=== PATIENT | male | born 1955 | race Caucasian/White ===

== ENCOUNTER 2016-04-27 07:34 | Inpatient (IN) | payer MEDICARE, MEDICAID ==
[~2016-04-27] VITALS: Ht 180.3 cm; Wt 267.2 kg
--- NOTE | ~2016-04-27 | CO ---
ADMIT: 04/27/2016 RM/LOC: 313 [facility] MR#: [id number] 2620 [facility] [address] [place] [id number] BALJIT BUTLER [address] [place] [address] Consultation SEX: M AGE: 61 : 1955 ATTENDING PHYSICIAN: Jef Collins CONSULTING PHYSICIAN: Lukas Salgado MD ADDENDUM: For details of our for consultation, please see Jose Maria Larson's note. Baljit was seen in the Emergency Department with complaints of some mild epigastric pain and vomiting blood as well as dark stool. This occurred over the weekend and progressed through the night and this morning, prompting a call to the EMS services. Upon evaluation, he was found to be hypotensive, related to his blood loss. He has prior history upper GI bleed 2 years ago, presented with similar complaints. He has never had upper endoscopy. He is severely morbidly obese with a current weight around 700-750 pounds. He has had a lap band in place for about 10 years and reports he has lost nearly 100 pounds from that. He has been taking large quantity of Excedrin recently. Based on his presentation, proton pump inhibitor therapy was initiated. I have recommended proceeding with esophagogastroduodenoscopy for evaluation as to the source. I discussed the risks of this in detail with Baljit and he does wish to proceed. He is at substantial risk because of his severe morbid obesity and he understands that. Lukas Salgado MD/ jeannette JOB #: [id number] CC: Jef Collins, Attending Physician Jef Collins, Family Physician
--- NOTE | 2016-04-28 06:22 | ER ---
ADMIT: 04/27/2016 RM/LOC: 313 [facility] MR#: [id number] [address] [facility] [address] [place], [place] [address] BALJIT BUTLER [address] [place], [place] [id number] Emergency Room Report SEX: M AGE: 61 : 1955 DATE: 04/27/2016 TIME: 0734 hours. Please refer to my T-sheet for complete H and P. HISTORY OF PRESENT ILLNESS: Briefly, the patient is a 61-year-old who has a known history of severe morbid obesity. He has been around 700 pounds. He has weighed himself recently. He had a GI bleed a couple of years ago but he woke up with vomiting black and blood in his stools. He called the paramedics. He felt very dizzy and lightheaded. They transported him in. PHYSICAL EXAMINATION: VITAL SIGNS: His blood pressure 121/96, pulse 118, respirations 18, temp 97, sat 99%. GENERAL: No acute distress. HEENT: His conjunctivae are slightly pale. LUNGS: Clear. HEART: Regular. ABDOMEN: Morbidly obese. Really nontender. RECTAL: Shows black stools, slight maroon tinge blood. SKIN: No rash. NEURO: He is alert, oriented, and nonfocal. EMERGENCY DEPARTMENT COURSE: We established an IV. We gave him Protonix 40 mg IV, typed and crossed 4 units. CBC was normal except hemoglobin of 11.3. Coags were normal. We gave him 1 L normal saline bolus. His blood pressures were actually slightly tenuous around 89-90. I talked to Dr. Collins and Dr. Salgado. He will be admitted to the ICU under the care of Dr. Collins. Dr. Salgado will consult. I reviewed his old record. ASSESSMENT: 1. Acute gastrointestinal bleed with hematemesis and hematochezia. 2. Anemia. 3. Morbid obesity. 4. Hypotension here. PLAN: Admit to the ICU and critical care time of 60 minutes. Maco Mooney MD/ jeannette JOB #: [id number] CC: Jef Collins MD, Attending Physician Jef Collins MD, Family Physician
--- NOTE | 2016-04-29 09:22 | OR ---
ADMIT: 04/27/2016 RM/LOC: 313 [facility] MR#: [id number] 2620 [facility] [address] [place], [place] [address] BALJIT BUTLER [address] [place], [place] [address] Operative/Delivery Room Report SEX: M AGE: 61 : 1955 SURGERY DATE: 04/27/2016 SURGEON: Lukas Salgado MD PREOPERATIVE DIAGNOSES: 1. Upper gastrointestinal bleed. 2. Anemia. POSTOPERATIVE DIAGNOSIS: Deep pyloric channel ulcer. PROCEDURE: Esophagogastroduodenoscopy. ANESTHESIA: General. ESTIMATED BLOOD LOSS: Zero. FINDINGS: Deep pyloric channel ulcer without evidence of acute bleeding or Dieulafoy's vessel. DESCRIPTION OF PROCEDURE: The patient was taken to the operating room and placed supine on his bariatric bed. General endotracheal anesthesia was established. The upper endoscope was then advanced through the oropharynx into the esophagus without difficulty. The scope was pushed under visualization of the stomach. Air was used to insufflate the stomach. There was old blood in the stomach. This was irrigated and suctioned clear. The pyloric channel was easily visualized. There was a deep pyloric channel ulcer. I was able to advance beyond this carefully into the duodenum and the duodenum was normal with the exception of some old blood present. The scope was withdrawn to the antrum. Inspection of the pre-pyloric ulcer revealed no active bleeding. I did irrigate and tried to manipulate tissue to see if there was any tendency for bleeding and I could not demonstrate that. The stomach was cleared of some residual liquid. The scope was withdrawn. The patient tolerated the procedure in stable condition and transferred to the recovery area. Lukas Salgado MD/ jeannette JOB #: [id number] CC: Jef Collins, Attending Physician Jef Collins, Family Physician
--- NOTE | 2016-05-01 09:57 | CO ---
ADMIT: 04/27/2016 RM/LOC: 313 [facility] MR#: [id number] 2620 [facility] [address] [place] [id number] BALJIT BUTLER [address] [place], [place] [id number] Consultation SEX: M AGE: 61 : 1955 ATTENDING PHYSICIAN: Jef Collins CONSULTING PHYSICIAN: Lukas Salgado MD REASON FOR CONSULTATION: Upper gastrointestinal bleed, acute. HISTORY OF PRESENT ILLNESS: Baljit is a very pleasant, 61-year-old male, morbid obesity, who presents to the ICU with one day onset of coffee-grounds emesis and melenic stools. He said he has had one prior episode like this before where he was seen at this hospital and attempted EGD; however, it was unsuccessful. He believes it was from current difficult airway. This happened approximately two years ago. He believes these symptoms are due to taking Excedrin migraine [id number] medications for increased pain. He denies any bright red blood per rectum or hematemesis. He further denies taking any other blood thinning medications. PAST MEDICAL HISTORY: Significant for: 1. Depression/anxiety. 2. Hypertension. 3. Morbid obesity. PAST SURGICAL HISTORY: No prior surgeries. ALLERGIES: NO KNOWN DRUG ALLERGIES. MEDICATIONS: Well documented in chart. FAMILY HISTORY: Noncontributory. SOCIAL HISTORY: The patient denies any tobacco, alcohol, or illicit drug use. REVIEW OF SYSTEMS: CONSTITUTIONAL: The patient denies any fever, chills, or night sweats. The rest of a comprehensive 10-point review of systems was performed and all other systems are negative. PHYSICAL EXAMINATION: GENERAL: The patient is in no acute distress. He is alert and oriented. HEENT: Head is normocephalic and atraumatic. EOMS are intact. Conjunctivae free of icterus, erythema, but positive for pallor. Pinnae, free of deformities. Nose is midline. Poor dentition. No tracheal deviation. NECK: Supple. SKIN: Negative for jaundice, clubbing, edema, pallor, or cyanosis. LUNGS: Normal respiratory effort. ADMIT: 04/27/2016 RM/LOC: 313 [facility] MR#: [id number] 2620 [facility] [address] [place] [id number] BALJIT BUTLER [address] [place] [address] Consultation SEX: M AGE: 61 : 1955 HEART: Regular rate and rhythm. Distal pulses intact. ABDOMEN: Morbid obesity noted. Soft, nondistended, and nontender. NEURO: Grossly intact. ASSESSMENT: Upper gastrointestinal bleed. PLAN: The plan is to have the patient undergo EGD performed by Dr. Salgado later this afternoon. Dr. Salgado has already gone through the risks, alternatives, benefits, and complications with this and all questions have been answered at this time. Thank for the consultation this patient's. YONY Ponce / Lukas Salgado MD / jeannette JOB #: [id number] CC: Jef Collins, Attending Physician Jef Collins, Family Physician
--- NOTE | 2016-05-02 08:02 | DS ---
ADMIT: 04/27/2016 RM/LOC: 313 [facility] MR#: [id number] 2620 [facility] [address] [place], [place] [address] BALJIT ROSE [address] [place] [address] Discharge Summary SEX: M AGE: 61 : 1955 ADMISSION DATE: 04/27/2016 DISCHARGE DATE: 05/01/2016 ADMITTING DIAGNOSES: 1. Acute blood loss anemia. 2. Upper GI (gastrointestinal) bleed secondary to heavy nonsteroidal antiinflammatory drug use. 3. Hypertension. 4. Extreme morbid obesity. 5. Bilateral knee osteoarthritis. 6. History of lap band surgery. 7. Chronic venous insufficiency. 8. Overactive bladder. 9. Hypertension. 10.History of NSAID (non-steroidal anti-inflammatory drug)-induced peptic ulcer disease dating back to a previous admission in 2014. DISCHARGE DIAGNOSES: 1. Acute blood loss anemia. 2. Upper GI (gastrointestinal) bleed secondary to heavy nonsteroidal antiinflammatory drug use. 3. Hypertension. 4. Extreme morbid obesity. 5. Bilateral knee osteoarthritis. 6. History of lap band surgery. 7. Chronic venous insufficiency. 8. Overactive bladder. 9. Hypertension. 10.History of NSAID (non-steroidal anti-inflammatory drug)-induced peptic ulcer disease dating back to a previous admission in 2014. CONSULTATIONS: Dr. Salgado, general surgery, consulted on 04/27/2016. PROCEDURES: Upper gastrointestinal endoscopy performed on 04/27/2016 showing a deep pyloric channel ulcer without any evidence of active bleed. HISTORY AND PHYSICAL EXAM: Mr. Rose is a very pleasant, 61-year-old white male, with a history of severe bilateral osteoarthritis of his knees. He presented to the [facility] Emergency Department on the morning of 04/27/2016 with complaints of coffee-ground emesis times 4-6 episodes and hematochezia x3-4 episodes starting at approximately 6 o'clock the evening prior to admission. He had a previous admission to [facility] in March of 2014 for an upper GI bleed at that time thought secondary to heavy ibuprofen use for his bilateral osteoarthritis. At the time of his discharge in 2014, he was advised he was not to be taking NSAIDs due to his history of ulcers. He reports that despite this advice he has been taking Excedrin in upwards of 4 times a day on top of his Lortab for his knee pain. On the initial exam, his blood pressure was 70/43, heart rate of 113, respiratory rate of 20, temp of 97, O2 saturation 100% on room air. He was ADMIT: 04/27/2016 RM/LOC: 313 [facility] MR#: [id number] [address] [address] BALJIT ROSE [address] [place] [address] Discharge Summary SEX: M AGE: 61 : 1955 awake, alert, pale appearing but no acute distress. Extremely morbidly obese. Weights on him are estimated somewhere between 600 and 700 pounds. The remainder of his exam was unremarkable. He had minimal abdominal pain with his exam however due to his obesity it is difficult to appreciate just how accurate the exam was. On his labs, albumin was 2.9, white count was 11.5 and hemoglobin was 11.3. He was subsequently admitted to the ICU, started on IV Protonix drip and typed and crossed for 4 units of packed red cells. These were held rather than transfused. He was fluid resuscitated with IV normal saline. HOSPITAL COURSE: Baljit's hospital course was overall unremarkable. His vital signs stabilized with fluid resuscitation. Dr. Salgado with General Surgery was consulted and did take Baljit down to the endoscopy suite for an upper GI endoscopy on 04/27/2016. It showed a deep pyloric channel ulcer but no active bleeding. He came back to the ICU where the IV Protonix drip was continued and he was started on oral Carafate. He was ultimately transitioned over to oral Protonix and again on the oral Carafate and had his hemoglobins monitored. By the morning of 05/01/2016, his hemoglobins had essentially stabilized at approximately 8.8-9. He had no further episodes of coffee- grounds emesis, no melena and was essentially asymptomatic from his anemia. Decision was made to discharge him to home on 05/01/2016. Discharge condition is poor due to his overall weight. Due to his weight, his number of medical comorbidities associated with that his overall health is poor. DISCHARGE DISPOSITION: He is going to be discharged to home. DISCHARGE MEDICATIONS: Discharge medications will include: 1. Carafate 1 g q.i.d. 2. Detrol LA 4 mg daily. 3. Effexor XR 150 mg daily. 4. Protonix 40 mg b.i.d. 5. Lortab 10/325 q.i.d. p.r.n. per his primary care provider, Dr. Roth. 6. Lisinopril/hydrochlorothiazide 10/12.5, one tab daily. 7. Ferrous sulfate 325 mg daily. 8. Vitamin C 500 mg daily. FOLLOWUP: He is recommended to follow up with his primary care provider, Dr. Roth in 1-2 weeks and is to have a repeat upper gastrointestinal endoscopy with Dr. Salgado in eight weeks to follow up on the ulcer. Jef Collins MD/ christinag JOB #: [id number] CC: eJf Collins MD, Attending Physician Jef Collins MD, Family Physician
--- NOTE | 2016-05-02 08:02 | HP ---
ADMIT: 04/27/2016 RM/LOC: 313 [facility] MR#: [id number] [address] [facility] [address] [place], [place] [address] BALJIT BUTLER [address] [place] [address] History and Physical SEX: M AGE: 61 : 1955 DATE OF SERVICE: 04/27/2016 CHIEF COMPLAINT: Coffee-ground emesis and hematochezia. HISTORY OF PRESENT ILLNESS: Patient is a 61-year-old white male, with extreme morbid obesity and history of lap band who presented to the [facility] Emergency Department this morning with complaints of coffee- grounds emesis x4-6 episodes and hematochezia x3-4 episodes starting about 6:00 Last evening. He does have a previous history of upper gastrointestinal bleed. His most recent admission here at [facility] in March of 2014 was also for an upper GI bleed. At that time, he was on quite a bit of ibuprofen for bilateral osteoarthritis in his knees. His bleeding at that time stopped spontaneously and he was not scoped from above. He notes feeling a bit weak and dizzy as a result of this in the overnight period. He reports that in the last several months, most recently, has been taking Excedrin in upwards of 4 times a day on top of his Lortab for his bilateral knee pain. PAST MEDICAL HISTORY: Remarkable for: 1. Hypertension. 2. Extreme morbid obesity. 3. Bilateral knee osteoarthritis. 4. History of bilateral lower extremity cellulitis. 5. Chronic venous insufficiency of his lower extremities. 6. History of lap band surgery. 7. History of NSAID-induced peptic ulcer disease instigated previously by heavy ibuprofen use. At the time of his admission in 2014, he was on Aleve for his knees. PAST SURGICAL HISTORY: Remarkable only for lap band surgery. Otherwise no other previous surgeries. ALLERGIES: HE DENIES ANY MEDICAL ALLERGIES. MEDICATIONS: Outpatient medications include: 1. Lortab one tab q.i.d. p.r.n. 2. Lisinopril and hydrochlorothiazide 12/10.5, one tab daily. 3. Effexor XR 150 mg daily. 4. Tolterodine ER 4 mg daily. 5. Excedrin 1-2 tabs q.i.d. SOCIAL HISTORY: He is on disability. He denies any alcohol or recreational drug use or tobacco use. FAMILY HISTORY: Noncontributory. REVIEW OF SYSTEMS: He denies any chest pain, cough, fever, shortness of breath. He does know having some epigastric and left upper quadrant discomfort starting approximately 2 days prior to the vomiting. The remainder of his review of systems as per HPI, all others reviewed were negative. ADMIT: 04/27/2016 RM/LOC: 313 [facility] MR#: [id number] [address] [address] BALJIT BUTLER [address] [facility] [address] [place] [address] History and Physical SEX: M AGE: 61 : 1955 PHYSICAL EXAMINATION: VITAL SIGNS: Most recent set of vitals; blood pressure is 70/43, heart rate of 113, respiratory rate of 20, temp was 97, and O2 saturation 100% on room air. GENERAL: He is awake, alert, no acute distress, pale appearing and extremely morbidly obese. HEENT: Normocephalic, atraumatic. He appears disheveled and does have dried blood noted on his chest and his dickinson. NECK: Supple. No lymphadenopathy. No thyromegaly. HEART: Tachycardic. Regular. No murmurs, gallops, or rubs. LUNGS: Clear to auscultation bilaterally. ABDOMEN: Extremely morbidly obese, soft, nontender, nondistended. No rebound, guarding, or masses. EXTREMITIES: No cyanosis, clubbing, or edema. LABORATORY AND X-RAY DATA: INR was 1.1. CMP shows a glucose 135, creatinine 1.4, calcium 8.1, and albumin 2.9. CBC shows a white count 11.5, hemoglobin 11.3, and hematocrit of 35.9, and a platelet count of 262. ASSESSMENT AND PLAN: 1. Upper gastrointestinal bleed suspected secondary to heavy nonsteroidal antiinflammatory drug use. 2. Hypertension. 3. Extreme morbid obesity. 4. Bilateral knee osteoarthritis. 5. History of lap band surgery. 6. Chronic venous insufficiency. PLAN: Will be to admit Baljit to the ICU. He is already receiving a bolus of IV fluids down here in the ER. As soon as that is done, we will reassess the need for another bolus of IV fluids. I am going to have him type and cross 4 units packed red cells. Dr. Slagado with General surgery has been consulted. Ricky's and SCDs will be initiated for DVT prophylaxis. We will start him on Zofran and Phenergan for nausea. he has been started on IV Protonix down here in the ER, and I will start him on IV Protonix drip at 8 mg/hour for the next 72 hours. Further management will be dependent on his clinical course. Jef Collins MD/ jeannette JOB #: [id number] CC: Jef Collins, Attending Physician Jef Collins, Family Physician
[2016-05-03] MEDS ORDERED: LISINOPRIL-HCT1 EACH PO (11:10)
[2016-05-03] MEDS ORDERED: HYDROCODON-ACE1 EAC6 PO (11:10)
[2016-05-03] MEDS ORDERED: CARAFATE DPS1 GM PO (11:11)
[2016-05-03] MEDS ORDERED: FEOSOL-DPS325 MG PO (11:11)
[2016-05-03] MEDS ORDERED: PROTONIX40 MG PO (11:11)
[2016-05-03] MEDS ORDERED: VENLAFAXINE HC150 M1 PO (11:11)
[2016-05-03] MEDS ORDERED: DETROL LA DPS4 MG PO (11:11)
[2016-05-03] MEDS ORDERED: ASCORBIC ACID500 MG PO (11:12)
== END 2016-05-01 11:20 | disposition home or self-care (01) | DRG 377 ==
LOC: ER 07:34 → 3ICU 08:30
PROVIDERS: ADMIT Family Medicine
PROC: 0DJ08ZZ Inspection of Upper Intestinal Tract, Via Natural or Artificial Opening Endoscopic (ICD-10-PCS; principal; 2016-04-27)
DX: K92.0 Hematemesis (principal); R57.1 Hypovolemic shock; Z68.45 Body mass index [BMI] 70 or greater, adult; I95.9 Hypotension, unspecified; E66.01 Morbid (severe) obesity due to excess calories; D62 Acute posthemorrhagic anemia; K92.1 Melena; N32.81 Overactive bladder; K25.9 Gastric ulcer, unspecified as acute or chronic, without hemorrhage or perforation; F41.9 Anxiety disorder, unspecified; F32.9 Major depressive disorder, single episode, unspecified; M17.0 Bilateral primary osteoarthritis of knee; I10 Essential (primary) hypertension; I87.2 Venous insufficiency (chronic) (peripheral); T39.395A Adverse effect of other nonsteroidal anti-inflammatory drugs [NSAID], initial encounter; Z98.0 Intestinal bypass and anastomosis status; Z87.11 Personal history of peptic ulcer disease; Z98.84 Bariatric surgery status